=== PATIENT | male | born 2000 | race Caucasian/White ===

== ENCOUNTER → 2024-01-02 | Emergency (ER) | payer MEDICAID ==
[~2024-01-02] VITALS: Ht 185.4 cm; Wt 79.5 kg
[~2024-01-02] MED LIST: 0.9% SODIUM CHLORIDE 10 ML SYRINGE IVP ONE; HALOPERIDOL 5 MG TABLET PO PRN; IOHEXOL 350 MG/ML 100 ML VIAL ONE; LORazepam 2 MG TABLET PO PRN; SODIUM CHLORIDE 0.9% 100 ML ONE; ZOLPIDEM TARTRATE 10 MG TABLET PO PRN
[2024-01-02 16:02] VITALS: TEMP 99.2
[2024-01-02 16:29] LABS: BASOPHILS % (AUTO) 0.3 % (0.0-2.0); EOSINOPHILS % (AUTO) 0 % (1.0-6.0); HEMATOCRIT 46.7 % (41-53); HEMOGLOBIN 15.4 g/dL (13.5-17.5); LYMPHOCYTES # (AUTO) 0.9 K/uL (1.0-4.8); MEAN CORPUSCULAR HEMOGLOBIN 28.7 pg (26.0-34.0); MEAN CORPUSCULAR HGB CONC 32.9 G/dL (31.0-37.0); MEAN CORPUSCULAR VOLUME 87 fL (80-100); MONOCYTES # (AUTO) 1.2 K/uL (0.1-1.0); MONOCYTES % (AUTO) 7.7 % (2.0-9.0); NEUTROPHILS # (AUTO) 13.4 K/uL (1.8-7.7); PLATELET COUNT (AUTO) 329 K/uL (150-450); RED BLOOD CELL COUNT(AUTO) 5.35 MIL/uL (4.50-5.90); RED CELL DISTRIBUTION WIDTH 14.1 % (11.5-14.5); WHITE BLOOD COUNT (AUTO) 15.6 K/uL (4.5-11.0)
[2024-01-02] MEDS: SODIUM CHLORIDE 0.9% 1,000 ML IV ONE (16:37)
[2024-01-02 16:40] LABS: ANION GAP 15 mmol/L (8-16); CALCIUM, TOTAL 9.8 mg/dL (8.8-10.5); CARBON DIOXIDE 25 mmol/L (22-29); CHLORIDE 98 mmol/L (98-107); CREATININE 0.93 mg/dL (0.60-1.30); GLOMERULAR FILTR. RATE CALC > 60 mL/min (>60); GLUCOSE,RANDOM 90 mg/dL (70-110); POTASSIUM 4.1 mmol/L (3.5-5.1); SODIUM SERUM 138 mmol/L (136-145); UREA NITROGEN, BLOOD 12 mg/dL (7-18)
[2024-01-02 16:47] LABS: B-TYPE NATRIURETIC PEPTIDE < 5 pg/mL (0-100)
[2024-01-02 16:49] LABS: ALANINE AMINOTRANSFERASE 18 U/L (12-78); ALBUMIN 4.7 g/dL (3.4-5.0); ALCOHOL, BLOOD (SERUM) < 3 mg/dL (0-10); ALKALINE PHOSPHATASE 100 U/L (46-116); ASPARTATE AMINOTRANSFERASE 18 U/L (15-37); CREATINE KINASE, TOTAL ONLY 173 U/L (39-308); TOTAL PROTEIN, SERUM 8.5 g/dL (6.4-8.2); TROPONIN I-HIGH SENSITIVITY Less Than 4 ng/L (<76)
[2024-01-02 17:23] LABS: APPEARANCE,URINE CLEAR (CLEAR); BILIRUBIN,URINE NEGATIVE (NEGATIVE); COLOR,URINE YELLOW (YELLOW); GLUCOSE, URINE (UA) NEGATIVE (NEGATIVE); KETONES,URINE 80-100 mg/dL (NEGATIVE); LEUKOCYTE ESTERASE ,URINE NEGATIVE (NEGATIVE); NITRATE,URINE NEGATIVE (NEGATIVE); OCCULT BLOOD,URINE NEGATIVE (NEGATIVE); PH,URINE 5.5 (5.0-8.0); PH,URINE DRUG SCREEN 5.5 (5.0-8.0); PROTEIN,URINE 30-70 mg/dL (NEGATIVE); SPECIFIC GRAVITIY, URINE 1.034 (1.003-1.030); UROBILINOGEN,URINE <=1.0 mg/dL (<=1.0)
[2024-01-02] MEDS: LORazepam 2 MG TABLET PO ONE (17:31)
[2024-01-02 17:32] LABS: ALCOHOL, URINE DRUG SCREEN NEGATIVE (NEGATIVE); AMPHET/METH SCREEN,URINE NEGATIVE (NEGATIVE); BARBITURATE SCREEN, URINE NEGATIVE (NEGATIVE); BENZODIAZEPINES SCREEN,URINE NEGATIVE (NEGATIVE); CANNABINOID SCREEN,URINE NEGATIVE (NEGATIVE); COCAINE SCREEN,URINE NEGATIVE (NEGATIVE); METHADONE SCREEN, URINE NEGATIVE (NEGATIVE); OPIATE SCREEN,URINE NEGATIVE (NEGATIVE); PHENCYCLIDINE SCREEN,URINE NEGATIVE (NEGATIVE)
[2024-01-02 20:20] LABS: COVID AG,FIA SOURCE NASAL SWAB
[2024-01-02 20:37] LABS: SARS-COV2 (COVID) ANTIGEN,FIA Negative (Negative)
[2024-01-02] MEDS: DiphenhydrAMINE HCL 50 MG CAPSULE PO ONE (21:25)
[2024-01-02] MEDS: HALOPERIDOL 5 MG TABLET PO ONE (21:25)
[2024-01-02] MEDS: PNEUMOCOCCAL VACCINE POLYVALENT 0.5 ML SYRINGE [PPSV23] IM. ONE (23:21)
[2024-01-02 23:42] VITALS: BP 103/51; PULSE 104; RESP 14; O2SAT 98
== END ==
LOC: EMS 14:49
DX: F32.9 Major depressive disorder, single episode, unspecified (principal); R00.0 Tachycardia, unspecified; F41.9 Anxiety disorder, unspecified; Z20.822 Contact with and (suspected) exposure to COVID-19
CPT/HCPCS: 80053; 81003; 82550; 83880; 84484; 85025; 36415; 71045; 71275; 93005; 96360; 99291; 80307; 87426; G0480; Q9967; J7030; J7050; X7700